=== PATIENT | male | born 1965 | race Caucasian/White ===

== ENCOUNTER 2016-10-16 09:32 | Outpatient (CLI) | payer OTHER ==
[2014-08-18 09:06] VITALS: BMI 47.2
--- NOTE | 2016-10-16 10:02 | DI ---
EXAM: Lumbar spine radiographs. HISTORY: Acute back pain. Sciatica. COMPARISON: None available. TECHNIQUE: 5 views of the lumbar spine. FINDINGS: The normal curvature and alignment are maintained. Vertebral body heights are normal. N o fracture or subluxation identified. There is mild loss of disc height at L5-S1. Mild multilevel endplate osteophyte formation and facet arthropathy noted. Sacral arcuate lines are intact. Soft t issues are unremarkable. Cholecystectomy clips noted. Staple line seen in the right lower quadrant , possibly due to prior appendectomy. IMPRESSION: Mild degenerative disc disease and facet arthropathy.
== END 2016-10-16 09:33 | disposition home or self-care (01) ==
LOC: RAD 09:32
PROVIDERS: ATTEND Family Medicine
DX: M54.5 Low back pain (principal)

== ENCOUNTER 2016-10-17 04:06 | Emergency (ER) | payer OTHER ==
[2016-10-17 04:20] VITALS: BP 127/81; TEMP 98.4; BMI 46.2
[2016-10-17] MEDS ORDERED: NORFLEX IM STA (04:34)
[2016-10-17] MEDS ORDERED: TORADOL IM STA (04:34)
[2016-10-17] MEDS ORDERED: DECADRON 4 MG/ML SDV IM STA (04:34)
--- NOTE | 2016-10-17 05:28 | CT ---
EXAM: CT lumbar spine without intravenous contrast 10/17/2016. Sagittal and coronal reformatted im ages obtained HISTORY: Hip pain COMPARISON: None. FINDINGS: A normal lumbar lordosis is maintained. Vertebral bodies appear intact without evidence of fracture. The facet joints align normally. Multilevel chronic degenerative disc disease. Posterior disc bulge/osteophyte complex most prominen t at L4-L5 and L5-S1. Mild bilateral L5-S1 neural foraminal stenosis. IMPRESSION: 1. There is no acute osseous abnormality of the lumbar spine. No fracture or subluxation. 2. Chronic degenerative disc disease. Posterior disc bulge/osteophyte complex most prominent at L4 -L5 and L5-S1.
--- NOTE | 2016-10-17 05:52 | ED.PDOC ---
General ED Provider: Dr. SHIVANI HERNANDEZ-ER Chief Complaint: Back Pain Stated Complaint: my back hurts and its gonig down my right leg Time Seen by Physician: 04:10 Mode of Arrival: Wheelchair Information Source: Patient, Family Exam Limitations: No limitations Primary Care Provider: SHIVANI HERNANDEZ Nursing and Triage Documentation Reviewed and Agree: Yes Musculoskeletal Complaint Exam - Back Pain Complaint/Exam Mechanism of Injury: Reports: No known trauma Symptoms Are: Still present Timing: Constant Episodes Lasting: Days Initial Severity: Mild Current Severity: Moderate Location: Reports: Discrete Character: Reports: Dull, Aching Aggravating: Reports: Movements, Lifting, Bending, Walking Alleviating: Reports: None Associated Signs and Symptoms: Denies: Swelling, Redness, Bruising, Fever, Weakness, Numbness, Tingling, Abdominal pain, Flank pain, Bladder incontinence, Bowel incontinence, Weight loss, Pain with weight bearing TAD Risk Factors: Reports: None AAA Risk Factors: Reports: None Cauda Equina Risk Factors: Reports: None Epidural Abcess Risk Factors: Reports: None Related Surgical History: Reports: None Focal Tenderness: Yes Paraspinal Muscle Tenderness: No Paraspinal Muscle Spasm: No Scoliosis: No Lordosis: No Kyphosis: No SLR Test: Right Negative, Left Negative Hip Motion Testing Pain: Right Negative, Left Negative Focal Weakness: Present: None Focal Sensory Loss: Present: None Gait: Present: Abnormal Differential Diagnoses: Compressive Cord Syndrome, Herniated Disk Review of Systems - Review Of Systems Constitutional: Reports: No symptoms Eyes: Reports: No symptoms Ears, Nose, Mouth, Throat: Reports: No symptoms Respiratory: Reports: No symptoms Cardiac: Reports: No symptoms GI: Reports: No symptoms : Reports: No symptoms Musculoskeletal: Reports: Back pain Skin: Reports: No symptoms Neurological: Reports: No symptoms Endocrine: Reports: No symptoms Hematologic/Lymphatic: Reports: No symptoms All Other Systems: Reviewed and Negative Past Medical History - Past Medical History Endocrine: Reports: DM 2 Cardiovascular: Reports: None Respiratory: Reports: None Hematological: Reports: None Gastrointestinal: Reports: None Genitourinary: Reports: None Neuro/Psych: Reports: None Musculoskeletal: Reports: None Cancer: Reports: None - Surgical History General Surgical History: Reports: Unknown - Family History Family History: Reports: Unknown - Social History Smoking Status: Never smoker Hx Substance Use: No Alcohol Screening: None - Immunizations Tetanus Shot up to Date: Yes Physical Exam - Physical Exam Appearance: Well-appearing, No pain distress, Well-nourished Pain Distress: Mild Eyes: MOUSTAPHA, EOMI, Conjunctiva clear ENT: Ears normal, Nose normal, Oropharynx normal Neck: Supple Respiratory: Airway patent, Breath sounds clear, Breath sounds equal, Respirations nonlabored Cardiovascular: RRR, Pulses normal, No rub, No murmur GI/: Soft Musculoskeletal: Normal strength, ROM intact, No edema, No calf tenderness Skin: Warm, Dry, Normal color Neurological: Sensation intact, Motor intact, Reflexes intact, Cranial nerves intact, Alert, Oriented Psychiatric: Affect appropriate Critical Care Note - Critical Care Note Total Time (mins): 0 Course - Course Orders, Labs, Meds: Orders Category Date Time Status Dexamethasone 4 mg/ml Inj [Decadron 4 mg/ml Sdv] MEDS 10/17/16 04:34 Discontinued 4 mg IM ONCE STA Ketorolac Tromethamine [Toradol] MEDS 10/17/16 04:34 Discontinued 60 mg IM ONCE STA Orphenadrine Citrate [Norflex] MEDS 10/17/16 04:34 Discontinued 60 mg IM ONCE STA CT LUMBAR SPINE W/O CONTRAST Stat RADS 10/17/16 04:32 Completed Medications Discontinued Medications Generic Name Dose Route Start Last Admin Trade Name Freq PRN Reason Stop Dose Admin Dexamethasone Sodium Phosphate 4 mg 10/17/16 04:34 10/17/16 05:05 Decadron 4 Mg/Ml Sdv IM 10/17/16 04:35 4 mg ONCE STA Administration Ketorolac Tromethamine 60 mg 10/17/16 04:34 10/17/16 05:06 Toradol IM 10/17/16 04:35 60 mg ONCE STA Administration Orphenadrine Citrate 60 mg 10/17/16 04:34 10/17/16 05:05 Norflex IM 10/17/16 04:35 60 mg ONCE STA Administration Vital Signs: Temp Pulse Resp BP Pulse Ox 10/17/16 04:07 98.4 F 83 20 127/81 96 Departure - Departure Time of Disposition: 05:52 Disposition: HOME SELF-CARE Discharge Problem: Pain in lower extremity due to sciatica Instructions: Sciatica (ED) Condition: Good Pt referred to PMD for follow-up: Yes Additional Instructions: norco 7.5mg q 6hrs prn pain #20--call my office this am to get set up for p.t. Allergies/Adverse Reactions: Allergies naproxen [From Naprosyn] Adverse Reaction (Verified 10/17/16 04:19) Hives/SWELLING Home Medications: Ambulatory Orders Lisinopril [Zestril] 10 mg PO DAILY 08/18/14 Metformin HCl 1,000 mg PO BID 08/18/14 Metformin HCl [Glucophage] 500 mg PO DAILY 08/18/14 Cetirizine HCl [Zyrtec] 10 mg PO 1 daily 05/22/16 Tadalafil [Cialis] 5 mg PO 1 daily 05/22/16 Pantoprazole Sodium [Protonix] 40 mg PO QDAC 10/17/16 Saxagliptin HCl [Onglyza] 5 mg PO DAILY 10/17/16 Disposition Discussed With: Patient, Family
== END 2016-10-17 06:00 | disposition home or self-care (01) ==
LOC: ED 04:06
DX: M54.41 Lumbago with sciatica, right side (principal)
CPT/HCPCS: 96372; 99283

== ENCOUNTER 2016-10-28 11:06 | Emergency (ER) | payer OTHER ==
[2016-10-28 11:07] VITALS: BMI 46.2
[2016-10-28 11:17] VITALS: BP 126/73; TEMP 101.2
[2016-10-28 13:18] LABS: BASOPHILS % (AUTO) 0.2 % (0.0-3.0); EOSINOPHILS # (AUTO) 0.1 K/ul (0.0-0.7); EOSINOPHILS % (AUTO) 1.1 % (0.0-7.0); HEMATOCRIT 37.7 % (42.0-52.0); HEMOGLOBIN 12.4 g/dl (14.0-18.0); IMMATURE GRANULOCYTE % (AUTO) 0.2 % (0.0-5.0); LYMPHOCYTES # (AUTO) 0.7 K/uL (0.60-3.4); LYMPHOCYTES % (AUTO) 5.9 (10.0-50.0); MEAN CORPUSCULAR HEMOGLOBIN 27.9 pg (27.0-31.0); MEAN CORPUSCULAR HGB CONC 32.9 (31.8-35.4); MEAN CORPUSCULAR VOLUME 84.7 fl (80.0-94.0); MONOCYTES # (AUTO) 0.8 K/uL (0.4-2.0); MONOCYTES % (AUTO) 6.7 (0-10); NEUTROPHILS # (AUTO) 10.7 K/ul (2.0-6.9); NEUTROPHILS % (AUTO) 85.9; PLATELET COUNT 233 10^3/uL (140-440); RED BLOOD COUNT 4.45 10^6/ul (4.70-6.10); WHITE BLOOD COUNT 12.49 K/ul (4.2-10.2)
[2016-10-28 13:41] LABS: ALBUMIN 3.8 g/dL (3.4-5.0); ALBUMIN/GLOBULIN RATIO 1.23; ANION GAP 15.3; BILIRUBIN,TOTAL 0.64 mg/dL (0.00-1.20); BUN/CREATININE RATIO 14.63; CALCIUM 9.4 mg/dL (8.2-10.2); CREATININE 1.23 mg/dL (0.60-1.10); POTASSIUM 4.3 mmol/L (3.5-5.1); TOTAL PROTEIN 6.9 g/dL (6.4-8.2)
--- NOTE | 2016-10-28 13:41 | DI ---
EXAM: Chest two views HISTORY: Cough COMPARISON: 01/31/2015 TECHNIQUE: Two views of the chest were performed FINDINGS: The lungs are clear. There is no pleural effusion or pneumothorax. The heart is normal in size. The mediastinal contour is normal. There are no acute abnormalities of the bones. IMPRESSION: No acute cardiopulmonary process.
[2016-10-28 13:46] LABS: FLU INTERNAL QC INTERNAL QC VALID; RAPID FLU A NEGATIVE (NEGATIVE); RAPID FLU B NEGATIVE (NEGATIVE)
--- NOTE | 2016-10-28 14:29 | ED.PDOC ---
General ED Provider: Dr. RUFINO HANNAH Chief Complaint: Diabetes Stated Complaint: weakness Time Seen by Physician: 11:11 (denied abdominal , or urinary symp) Mode of Arrival: Walk-In Information Source: Patient Exam Limitations: No limitations Primary Care Provider: SHIVANI HERNANDEZ Nursing and Triage Documentation Reviewed and Agree: Yes (some rectal pain upon bowel movement last colonscopy 3 months ago ) Neurological Complaint Exam - Weakness Complaint/Exam Last Known Well: this morning felt weak at work on arrival was noted he has fever 101 Onset: Gradual Duration: 5 hrs Symptoms Are: Still present Episodes Lasting: Hours Initial Severity: Mild Current Severity: Mild Character: Reports: Weak. Denies: Room spinning, Lightheaded, Dizzy Aggravating: Reports: None Alleviating: Reports: None Associated Signs and Symptoms: Denies: Nausea, Vomiting, Diaphoresis, Tinnitus, Chest pain, Short of air, Palpitations, Unsteady gait, GI blood loss, Visual changes, Decreased oral intake, Change in medication, Change in diet, OTC meds, Loss of balance Cardiac Risk Factors: Reports: Diabetes CVA Risk Factors: Reports: Diabetes Related Surgical History: Reports: None JVD Present: No Carotid Bruit Present: No Rectal Heme Positive: No Glascow Coma Scale (see protocol): 15 Nystagmus Present: No Gag Reflex Present: No Meningeal Signs Positive: No Focal Weakness: Present: None Focal Sensory Loss: Present: None Gait: Normal Differential Diagnoses: Hypovolemia, Metabolic abnormalities Quality Indicators for Cardiac Chest Pain: EKG in 10min. Quality Indicators for AMI: EKG in 10min. Review of Systems - Review Of Systems Constitutional: Reports: Fever, Malaise, Weakness Eyes: Reports: No symptoms Ears, Nose, Mouth, Throat: Reports: No symptoms Respiratory: Reports: Cough Cardiac: Reports: No symptoms GI: Reports: No symptoms : Reports: No symptoms Musculoskeletal: Reports: No symptoms Skin: Reports: No symptoms Neurological: Reports: No symptoms Endocrine: Reports: No symptoms Hematologic/Lymphatic: Reports: No symptoms All Other Systems: Reviewed and Negative Past Medical History - Past Medical History Endocrine: Reports: DM 2 Cardiovascular: Reports: None Respiratory: Reports: None Hematological: Reports: None Gastrointestinal: Reports: Other (colonic polyps lower GI bleed ALTHOUGH NOT TODAY OR LAST WEEK) Genitourinary: Reports: None Neuro/Psych: Reports: None Musculoskeletal: Reports: None Cancer: Reports: None - Surgical History General Surgical History: Reports: Unknown - Family History Family History: Reports: Unknown - Social History Smoking Status: Never smoker Hx Substance Use: No Alcohol Screening: None - Immunizations Tetanus Shot up to Date: Yes Physical Exam - Physical Exam Appearance: Well-appearing, No pain distress, Well-nourished Eyes: MOUSTAPHA, EOMI, Conjunctiva clear ENT: Ears normal, Nose normal, Oropharynx normal Respiratory: Airway patent, Breath sounds clear, Breath sounds equal, Respirations nonlabored Cardiovascular: RRR, Pulses normal, No rub, No murmur GI/: Soft, Nontender, No masses, Bowel sounds normal, No Organomegaly Musculoskeletal: Normal strength, ROM intact, No edema, No calf tenderness Skin: Warm, Dry, Normal color Neurological: Sensation intact, Motor intact, Reflexes intact, Cranial nerves intact, Alert, Oriented Psychiatric: Affect appropriate, Mood appropriate Interpretation - Radiology Interpretation Radiology Interpretation By: Radiologist Radiology Results: Negative Exam Interpreted: CXR Critical Care Note - Critical Care Note Total Time (mins): 0 Course - Course Hematology/Chemistry: 10/28/16 13:06 10/28/16 13:15 Orders, Labs, Meds: Lab Review 10/28/16 10/28/16 13:06 13:15 WBC 12.49 H RBC 4.45 L Hgb 12.4 L Hct 37.7 L MCV 84.7 MCH 27.9 MCHC 32.9 RDW Coeff of Kay 13.9 Plt Count 233 Immature Gran % (Auto) 0.2 Neut % (Auto) 85.9 Lymph % (Auto) 5.9 L [place] % (Auto) 6.7 Eos % (Auto) 1.1 Baso % (Auto) 0.2 Immature Gran # (Auto) 0.0 Neut # 10.7 H Lymph # 0.7 [place] # 0.8 Eos # 0.1 Baso # 0.0 Sodium 137 Potassium 4.3 Chloride 103 Carbon Dioxide 23 Anion Gap 15.3 BUN 18 Creatinine 1.23 H Estimated GFR (MDRD) 62.00 BUN/Creatinine Ratio 14.63 Glucose 229 H Lactic Acid 16.5 Calcium 9.4 Total Bilirubin 0.64 AST 29 ALT 51 Alkaline Phosphatase 58 Total Protein 6.9 Albumin 3.8 Globulin 3.1 Albumin/Globulin Ratio 1.23 Influenza A (Rapid) Negative Influenza B (Rapid) Negative Orders Category Date Time Status EKG-(ED ONLY) Stat CARDIO 10/28/16 14:22 Ordered BLOOD CULTURE Stat LAB 10/28/16 13:15 Received CBC W/ AUTO DIFF Stat LAB 10/28/16 13:06 Completed COMPREHENSIVE METABOLIC PANEL Stat LAB 10/28/16 13:15 Completed FERRITIN Routine LAB 10/28/16 Ordered IRON AND TIBC Routine LAB 10/28/16 Ordered LACTIC ACID Stat LAB 10/28/16 13:15 Completed MOLECULAR GROUP A STREP Stat LAB 10/28/16 13:15 Results RAPID FLU A/B Stat LAB 10/28/16 13:15 Completed STREP SCREEN Stat LAB 10/28/16 13:15 Results CHEST, 2 VIEWS PA & LAT Stat RADS 10/28/16 13:06 Completed Vital Signs: Temp Pulse Resp BP Pulse Ox 10/28/16 11:07 101.2 F H 112 H 20 126/73 94 L Departure - Departure Time of Disposition: 14:37 Disposition: HOME SELF-CARE Discharge Problem: Weakness Anemia Qualifiers: Anemia type: unspecified type Qualifier Code: (D64.9) Anemia, unspecified Instructions: Anemia (ED) Condition: Good Pt referred to PMD for follow-up: No Additional Instructions: Please call your Family Physician as soon as possible to schedule a follow-up appointment. Prescriptions: Hydrocodone/Acetaminophen [[place] 5-325 Tablet] 1 each PO Q6HR PRN #20 tablet PRN Reason: PAIN Allergies/Adverse Reactions: Allergies naproxen [From Naprosyn] Adverse Reaction (Verified 10/17/16 04:19) Hives/SWELLING Home Medications: Ambulatory Orders Lisinopril [Zestril] 10 mg PO DAILY 08/18/14 Metformin HCl 1,000 mg PO BID 08/18/14 Metformin HCl [Glucophage] 500 mg PO DAILY 08/18/14 Cetirizine HCl [Zyrtec] 10 mg PO 1 daily 05/22/16 Tadalafil [Cialis] 5 mg PO 1 daily 05/22/16 Pantoprazole Sodium [Protonix] 40 mg PO QDAC 10/17/16 Saxagliptin HCl [Onglyza] 5 mg PO DAILY 10/17/16 Hydrocodone/Acetaminophen [[place] 5-325 Tablet] 1 each PO Q6HR PRN #20 tablet
[2016-10-28 15:05] LABS: FERRITIN 71.07 ng/mL (21.81-274.66)
== END 2016-10-28 15:21 | disposition home or self-care (01) ==
LOC: ED 11:06
DX: R53.1 Weakness (principal); D64.9 Anemia, unspecified; E11.9 Type 2 diabetes mellitus without complications; R50.9 Fever, unspecified; R05 Cough; Z79.899 Other long term (current) drug therapy
CPT/HCPCS: 36415; 80053; 82728; 83540; 83550; 83605; 85025; 87040; 87651; 87804; 87880; 93005; 93010; 99283

== ENCOUNTER 2016-11-04 08:00 | Outpatient (RCR) ==
--- NOTE | 2016-10-21 11:21 | RS.OPPTEV2 ---
Date of Note: 10/21/16 Visit #: 1 Date of Evaluation: 10/21/16 Payer Source: Insurance Treatment Diagnosis: Low Back pain, Sciatica associated with disorder of lumbar spine History of Condition/Mechanism of Injury:: Patient reports onset of pain approximately 3-4 weeks ago. Reports no injury that he is aware of. Reports no history of back problems. Prior Level of Function.....Patient was independent with: ADL's, Self Care, Work /Vocation, Caregiving, Ambulation/Mobility, Community Integration/Access Functional Limitations: Reaching, Pushing, Pulling, Lifting, Carrying, Sitting, Standing, Bending, Ambulation, Community Access/Integration Current Subjective/complaints:: Patient reports back pain and some radiating symptoms. States he always has an aching discomfort in the low back. States last week he got up and could barely walk due to pain and symptoms in his legs. He went to the ER and received injections, which have helped. He is currently taking an anti-inflammatory. He has pain medication. States walking still bothers him. Reports his legs feel weak and like he has a lack of control. Reports aching in the low back with prolonged sitting. He is continuining to work. 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 States if something breaks down, he has to use heavy equipment or tools. 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 Medical History Medical History: Hypertension, Diabetes Surgical History: Cholecystectomy Surgical History Comments:: Appendectomy Diagnostic Testing/Imaging:: CT Lumbar spine w/o contrast 10/17/16: "There is no acute osseous abnormality of the lumbar spine. No fracture or subluxation. Chronic degenerative disc disease. Posterior disc bulge/osteophyte complex most prominent at L4-5, L5-S1." Hx Home Medications: anti-inflammatory, pain medication Patient's Goals: His goal is to get relief of back pain. Pain Assessment - Pain Description Pain Location: low back and leg pain Pain Description: Aching Current Pain Intensity: 2/10 Worst Pain Intensity: 9/10 Functional Outcome Measure Oswestry LBP: 40 - G Codes & Severity Modifier G Codes & Modifier: NA Source of G Code score: NA Observation - Observation Posture: Scapula Asymmetry (right shoulder elevated (patient is left handed)) Handedness: Left Gait - Gait Pattern General Gait Pattern Observation: No Deviations/Normal - ROM Lumbar Flexion: Hand reach to patellae (lumbar spine with minimal mobility due to muscle tone) Sidebending to Left: Reach to Mid-thigh Sidebending to Right: Reach to Mid-thigh Lumbar Spine ROM Limitations: Soft Tissue Tightness, Pain Comments: Lumbar extension WFL's with reports of increased discomfort at low back. Bilateral LE AROM is WFL's. - Strength Comments: Trunk strength and LE strength 5/5 throughout. - Special Tests JIE Test: Negative Left, Negative Right SLR Test: Negative Left, Negative Right Pio's Sign Test: Negative Left, Negative Right Seated Dural Stretch Test: Negative Left, Negative Right SI Joint Compression: Negative Palpation Comments:: Patient reports no tenderness with palpation throughout the lumbar spine, SI joints, or superior gluteal region bilaterally. Demonstrates moderate muscle guarding along the lumbar paraspinals. Sensation - Sensation Right Lower Extremity: Intact/Normal Left Lower Extremity: Intact/Normal Additional Comments: Additional Comments: In supine left LE appears shorter than the left by ~1/4 inch. SLR in supine: right 40 degrees, left 50 degrees. - Treatment Modality: Ultrasound Parameters/Method Applied: X 12 mins @ 1.6 w/cm2 continuous to bilateral lumbosacral region Patient Position: Left Sidelying Interventions - Exercise/Activities/Manual Therapy Exercises/Activities: Patient instructed in SKTC and HS stretch Manual Therapy: NA HOME EXERCISE PROGRAM: SKTC and HS stretch - Charges Total Direct Minutes: 48 mins Total Treatment Time: 48 mins Procedures billed for this date of service:: EVAL medium complexity, US Assessment Assessment: Patient presents to therapy with diagnosis of low back pain, sciatica from lumbar spine. He demonstrates decreased lumbar mobility due to muscle guarding. Demonstrates lumbar ROM limited by pain/muscle guarding. Exhibits imbalance and tightness of hamstrings. Reports difficulty with activities such as walking, lifting, and prolonged sitting due to discomfort. He demonstrates good potential to benefit from modalities and exercises to improve his mobility and decrease his pain. Patient Education: Education of diagnosis, Body/Joint mechanics, Home Exercise Program, Home Safety, Activity Modification, Education of Plan of Care Rehab Potential: Good Short Term Goals Goal #1: Pt independent and compliant with basic HEP. Goal to be met by: 11/04/16 Goal #2: Muscle tone along lumbar spine decreased to minimal. Goal to be met by: 11/04/16 Goal #3: Low back pain at worst <5/10. Goal to be met by: 11/04/16 Gamer Goals Goal #1: Pt knows to continue HEP to maintain level of function at discharge. Goal to be met by: 11/30/16 Goal #2: Score on Oswestry LBP scale improved to 12. Goal to be met by: 11/30/16 Goal #3: Pt able to perform all home and work activities without back or LE pain. Goal to be met by: 11/30/16 Goal #4: Pt to demonstrates good comprehension of back safety and body mechanics. Goal to be met by: 11/30/16 Plan - Treatment to be Provided Procedures: Therapeutic Exercises, Therapeutic Activity, Manual Therapy, Patient Education Modalities: Electrical Stimulation, Ultrasound/Phonophoresis, Class IV Laser, Cryotherapy, Hot Packs - Treatment Plan Frequency: 2-3 X week Duration: 4 weeks ORDER # VISITS AND/OR THROUGH DATE: 11/30/16 - Treatment Code (1) Low back pain Qualifiers: Chronicity: acute Back pain laterality: unspecified Sciatica presence: unspecified whether sciatica present Qualified Description: Acute low back pain, unspecified back pain laterality, with sciatica presence unspecified Qualifier Code(s): (M54.5) Low back pain
--- NOTE | 2016-10-23 16:29 | RS.OPPTDN ---
Subjective Date of Note: 10/23/16 Visit #: 2 Date of Evaluation: 10/21/16 Payer Source: Insurance Treatment Diagnosis: Low Back pain, Sciatica associated with disorder of lumbar spine Current Subjective/complaints:: Patient reports first treatment helped reduce pain. Patient reports he has more pain at the left S-I today, was greater on the right. Reports no pain immediately following treatment and exercise. Pain Assessment - Pain Description Pain Location: low back and leg pain Pain Description: Aching Current Pain Intensity: 2-3/10, no pain following treatment - Treatment Modality: Ultrasound Parameters/Method Applied: [id number] at 1.5w/cm2 to the bilateral lower lumbar paraspinals and the S-I joints with focus on the left. Patient in right side- lying. Patient Position: Right Sidelying - Heat/Cryotherapy Treatment: Hot Pack ([id number] to the lumbar paraspinals prior to US and EX. Patient in supine. ) Interventions - Exercise/Activities/Manual Therapy Exercises/Activities: [id number] Assisted assisted with HS, SKTC, piriformis, and trunk rotation. Reviewed HEP and given copy of piriformis stretch. Total minutes of Exercise: 15mins Manual Therapy: NA HOME EXERCISE PROGRAM: SKTC and HS stretch, piriformis stretch - Charges Total Direct Minutes: 29mins Total Treatment Time: 49mins Procedures billed for this date of service:: HP, US, EX Assessment: Patient responding to treatment. Seems motivated to porgress. Patient Education: Body/Joint mechanics, Home Exercise Program, Activity Modification Comments: Patient education of dx, mechanics, safety, and HEP. Patient demonstrates compliance with HEP?: Yes Short Term Goals Goal #1: Pt independent and compliant with basic HEP. Goal to be met by: 11/04/16 Progress towards Goal:: Progressing Goal #2: Muscle tone along lumbar spine decreased to minimal. Goal to be met by: 11/04/16 Goal #3: Low back pain at worst <5/10. Goal to be met by: 11/04/16 Progress towards Goal:: Progressing Group Home Goals Goal #1: Pt knows to continue HEP to maintain level of function at discharge. Goal to be met by: 11/30/16 Goal #2: Score on Oswestry LBP scale improved to 12. Goal to be met by: 11/30/16 Goal #3: Pt able to perform all home and work activities without back or LE pain. Goal to be met by: 11/30/16 Goal #4: Pt to demonstrates good comprehension of back safety and body mechanics. Goal to be met by: 11/30/16 Plan PLAN OF CARE EXPIRES ON:: 11/30/16 ORDER # VISITS AND/OR THROUGH DATE: 11/30/16 PLAN: Continue Plan of Care
--- NOTE | 2016-10-25 14:08 | RS.OPPTDN ---
Subjective Date of Note: 10/25/16 Visit #: 3 Date of Evaluation: 10/21/16 Payer Source: Insurance Treatment Diagnosis: Low Back pain, Sciatica associated with disorder of lumbar spine Current Subjective/complaints:: Patient reports pain is better since starting treatemnt and is working on HEP. Pain Assessment - Pain Description Pain Location: low back and leg pain Pain Description: Aching Current Pain Intensity: 2-3/10, min to no pain following treatment - Treatment Modality: US with ES (Comb.) Parameters/Method Applied: [id number] at 1.5w/cm2 and Estim to 135p.v. to the bilateral S-I joints with focus on left. Patient Position: Right Sidelying - Heat/Cryotherapy Treatment: Hot Pack ([id number] to lowback prior to USCOM. Patient in supine) Interventions - Exercise/Activities/Manual Therapy Exercises/Activities: [id number] Assisted assisted with HS, SKTC, piriformis, and trunk rotation. Isometric hip adduction, isomentric hip flexion, Bridging, Total minutes of Exercise: 15mins Manual Therapy: NA HOME EXERCISE PROGRAM: SKTC and HS stretch, piriformis stretch, isometric hip add, isometric hip flexion, bridging - Charges Total Direct Minutes: 27mins Total Treatment Time: 47mins Procedures billed for this date of service:: HP, USCOM, EX Assessment: Patient responding to treatment and able to advance with exercise. Patient Education: Body/Joint mechanics, Home Exercise Program, Activity Modification Patient demonstrates compliance with HEP?: Yes Short Term Goals Goal #1: Pt independent and compliant with basic HEP. Goal to be met by: 11/04/16 Progress towards Goal:: Met Goal #2: Muscle tone along lumbar spine decreased to minimal. Goal to be met by: 11/04/16 Goal #3: Low back pain at worst <5/10. Goal to be met by: 11/04/16 Progress towards Goal:: Met Residential Goals Goal #1: Pt knows to continue HEP to maintain level of function at discharge. Goal to be met by: 11/30/16 Goal #2: Score on Oswestry LBP scale improved to 12. Goal to be met by: 11/30/16 Goal #3: Pt able to perform all home and work activities without back or LE pain. Goal to be met by: 11/30/16 Goal #4: Pt to demonstrates good comprehension of back safety and body mechanics. Goal to be met by: 11/30/16 Plan PLAN OF CARE EXPIRES ON:: 11/30/16 ORDER # VISITS AND/OR THROUGH DATE: 11/30/16 PLAN: Continue Plan of Care
--- NOTE | 2016-11-01 16:42 | RS.OPPTDN ---
Subjective Date of Note: 11/01/16 Visit #: 4 Date of Evaluation: 10/21/16 Payer Source: Insurance Treatment Diagnosis: Low Back pain, Sciatica associated with disorder of lumbar spine Current Subjective/complaints:: Reports he feels better this week,no pain at this time. Pain Assessment - Pain Description Pain Location: low back and leg pain Pain Description: Aching Current Pain Intensity: 0 at rest - Heat/Cryotherapy Treatment: Hot Pack (20 mins. to lumbar in supine) Interventions - Exercise/Activities/Manual Therapy Exercises/Activities: [id number] Assisted assisted with HS, SKTC, piriformis, and trunk rotation. Isometric hip adduction, isomentric hip flexion, Bridging, Total minutes of Exercise: 15 Manual Therapy: Deep tisue mobs . to lumbar paraspinals,emphasis on R side. Total minutes of Manual Therapy: 15 HOME EXERCISE PROGRAM: SKTC and HS stretch, piriformis stretch, isometric hip add, isometric hip flexion, bridging - Charges Total Direct Minutes: 30 Total Treatment Time: 50 Procedures billed for this date of service:: hp,ex,manual Assessment: Patient progressing,has no pain today during session.He has good hamstring extensibility bilaterally.He is noted to be tighter in the R lumbar with trunk rotation to the L today.He is attentive to recommendations for his POC. Patient Education: Body/Joint mechanics, Home Exercise Program, Home Safety, Activity Modification, Education of Plan of Care Patient demonstrates compliance with HEP?: Yes Short Term Goals Goal #1: Pt independent and compliant with basic HEP. Goal to be met by: 11/04/16 Progress towards Goal:: Met Goal #2: Muscle tone along lumbar spine decreased to minimal. Goal to be met by: 11/04/16 Progress towards Goal:: Progressing Goal #3: Low back pain at worst <5/10. Goal to be met by: 11/04/16 Progress towards Goal:: Met Shelter Goals Goal #1: Pt knows to continue HEP to maintain level of function at discharge. Goal to be met by: 11/30/16 Progress towards goal: Progressing Goal #2: Score on Oswestry LBP scale improved to 12. Goal to be met by: 11/30/16 Goal #3: Pt able to perform all home and work activities without back or LE pain. Goal to be met by: 11/30/16 Progress towards goal: Progressing Goal #4: Pt to demonstrates good comprehension of back safety and body mechanics. Goal to be met by: 11/30/16 Plan PLAN OF CARE EXPIRES ON:: 11/30/16 ORDER # VISITS AND/OR THROUGH DATE: 11/30/16 PLAN: Continue Plan of Care
--- NOTE | 2016-11-04 08:59 | RS.OPPTDN ---
Subjective Date of Note: 11/04/16 Visit #: 5 Date of Evaluation: 10/21/16 Payer Source: Insurance Treatment Diagnosis: Low Back pain, Sciatica associated with disorder of lumbar spine Current Subjective/complaints:: Patient reports tenderness after last session of dep tissue mobs.,but overall feels better.No pain this morning. Pain Assessment - Pain Description Pain Location: low back and leg pain,(but not present today) Pain Description: Aching Current Pain Intensity: 0 at rest - Heat/Cryotherapy Treatment: Hot Pack (20 mins. to lumbar ,prior to exercises) Interventions - Exercise/Activities/Manual Therapy Exercises/Activities: 20 mins. SKTC,DKTC,90/90 hams. stretches,piriformis stretches,lower trunk rotation. Total minutes of Exercise: 20 Manual Therapy: N/A Total minutes of Manual Therapy: 0 HOME EXERCISE PROGRAM: SKTC and HS stretch, piriformis stretch, isometric hip add, isometric hip flexion, bridging - Charges Total Direct Minutes: 20 Total Treatment Time: 40 Procedures billed for this date of service:: hp,ex 1 Assessment: Patient pain-free this morning,no re-occuring pain during exercises.He has good hamstring extensibility bilaterally.He is motivated to improve,compliant to HEP. Patient Education: Home Exercise Program, Education of Plan of Care Patient demonstrates compliance with HEP?: Yes Short Term Goals Goal #1: Pt independent and compliant with basic HEP. Goal to be met by: 11/04/16 Progress towards Goal:: Met Goal #2: Muscle tone along lumbar spine decreased to minimal. Goal to be met by: 11/04/16 Progress towards Goal:: Progressing Goal #3: Low back pain at worst <5/10. Goal to be met by: 11/04/16 Progress towards Goal:: Met Shelter Goals Goal #1: Pt knows to continue HEP to maintain level of function at discharge. Goal to be met by: 11/30/16 Progress towards goal: Progressing Goal #2: Score on Oswestry LBP scale improved to 12. Goal to be met by: 11/30/16 Goal #3: Pt able to perform all home and work activities without back or LE pain. Goal to be met by: 11/30/16 Progress towards goal: Progressing Goal #4: Pt to demonstrates good comprehension of back safety and body mechanics. Goal to be met by: 11/30/16 Progress towards goal: Progressing Plan PLAN OF CARE EXPIRES ON:: 11/30/16 ORDER # VISITS AND/OR THROUGH DATE: 11/30/16 PLAN: Continue Plan of Care
== END 2016-11-05 ==
PROVIDERS: ATTEND Family Medicine
DX: M53.9 Dorsopathy, unspecified (principal); M54.5 Low back pain

== ENCOUNTER 2016-11-21 13:00 | Outpatient (RCR) ==
--- NOTE | 2016-11-06 09:12 | RS.OPPTDN ---
Subjective Date of Note: 11/06/16 Visit #: 6 Date of Evaluation: 10/21/16 Payer Source: Insurance Treatment Diagnosis: Low Back pain, Sciatica associated with disorder of lumbar spine Current Subjective/complaints:: Reports the low back feels better,has some discomfort in the mid-back. Pain Assessment - Pain Description Pain Location: low back and leg pain,(but not present today) Current Pain Intensity: 0 at rest - Heat/Cryotherapy Treatment: Hot Pack (20 ins. prior to exercises) Interventions - Exercise/Activities/Manual Therapy Exercises/Activities: 20 mins. green theraband exercises of postural pullbacks at three different heights.Recommended 3/10-15 reps,2-3x/day in PAIN FREE ROM. Total minutes of Exercise: 20 Manual Therapy: N/A Total minutes of Manual Therapy: 0 HOME EXERCISE PROGRAM: SKTC and HS stretch, piriformis stretch, isometric hip add, isometric hip flexion, bridging - Charges Total Direct Minutes: 20 Total Treatment Time: 40 Procedures billed for this date of service:: hp,ex Assessment: Patient has good return demo of theraband exercises,good speed of eccentric motion.He reports fatigue only in trunk extensors,no pain present.He is motivated to improve. Patient Education: Body/Joint mechanics, Home Exercise Program Patient demonstrates compliance with HEP?: Yes Short Term Goals Goal #1: Pt independent and compliant with basic HEP. Goal to be met by: 11/04/16 Progress towards Goal:: Met Goal #2: Muscle tone along lumbar spine decreased to minimal. Goal to be met by: 11/04/16 Progress towards Goal:: Progressing Goal #3: Low back pain at worst <5/10. Goal to be met by: 11/04/16 Progress towards Goal:: Met [facility] Goals Goal #1: Pt knows to continue HEP to maintain level of function at discharge. Goal to be met by: 11/30/16 Progress towards goal: Progressing Goal #2: Score on Oswestry LBP scale improved to 12. Goal to be met by: 11/30/16 Goal #3: Pt able to perform all home and work activities without back or LE pain. Goal to be met by: 11/30/16 Progress towards goal: Progressing Goal #4: Pt to demonstrates good comprehension of back safety and body mechanics. Goal to be met by: 11/30/16 Progress towards goal: Partially Met Plan PLAN OF CARE EXPIRES ON:: 11/30/16 ORDER # VISITS AND/OR THROUGH DATE: 11/30/16 PLAN: Continue Plan of Care
--- NOTE | 2016-11-11 14:06 | RS.OPPTDN ---
Subjective Date of Note: 11/11/16 Visit #: 7 Date of Evaluation: 10/21/16 Payer Source: Insurance Treatment Diagnosis: Low Back pain, Sciatica associated with disorder of lumbar spine Current Subjective/complaints:: Patient reports his pain has lessened significantly the past 3-4 days,no pain at present time. Pain Assessment - Pain Description Pain Location: low back and leg pain,(but not present today) Current Pain Intensity: 0 at rest - Heat/Cryotherapy Treatment: Hot Pack (20 mins. prior to exercises) Interventions - Exercise/Activities/Manual Therapy Exercises/Activities: 25 mins. postural pullbacks at three different heights on the multi-gym with 20# resistance,then instructed in standing exercises using large therapy ball against the wall,doing alternating UE/LE. Total minutes of Exercise: 25 Manual Therapy: N/A Total minutes of Manual Therapy: 0 HOME EXERCISE PROGRAM: SKTC and HS stretch, piriformis stretch, isometric hip add, isometric hip flexion, bridging - Charges Total Direct Minutes: 25 Total Treatment Time: 45 Procedures billed for this date of service:: hp,ex 2 Assessment: Progressing well,no report of back pain with progressive resistance exercises today.He reports overall less frequent and less intense pain with strenuous activities.He is attentive to recommendations of the therapy staff. Patient Education: Body/Joint mechanics, Home Exercise Program, Education of Plan of Care Patient demonstrates compliance with HEP?: Yes Short Term Goals Goal #1: Pt independent and compliant with basic HEP. Goal to be met by: 11/04/16 Progress towards Goal:: Met Goal #2: Muscle tone along lumbar spine decreased to minimal. Goal to be met by: 11/04/16 Progress towards Goal:: Partially Met Goal #3: Low back pain at worst <5/10. Goal to be met by: 11/04/16 Progress towards Goal:: Met Nursing Home Goals Goal #1: Pt knows to continue HEP to maintain level of function at discharge. Goal to be met by: 11/30/16 Progress towards goal: Progressing Goal #2: Score on Oswestry LBP scale improved to 12. Goal to be met by: 11/30/16 Goal #3: Pt able to perform all home and work activities without back or LE pain. Goal to be met by: 11/30/16 Progress towards goal: Progressing Goal #4: Pt to demonstrates good comprehension of back safety and body mechanics. Goal to be met by: 11/30/16 Progress towards goal: Met Plan PLAN OF CARE EXPIRES ON:: 11/30/16 ORDER # VISITS AND/OR THROUGH DATE: 11/30/16 PLAN: Progress Exercises
--- NOTE | 2016-11-13 09:04 | RS.OPPTDN ---
Subjective Date of Note: 11/13/16 Visit #: 8 Date of Evaluation: 10/21/16 Payer Source: Insurance Treatment Diagnosis: Low Back pain, Sciatica associated with disorder of lumbar spine Current Subjective/complaints:: Patient reports muscle soreness from last session ,but no pain present. Pain Assessment - Pain Description Pain Location: low back Current Pain Intensity: 0 at rest Other Comments regarding Pain:: muscle soreness only - Heat/Cryotherapy Treatment: Hot Pack (20 mins. to low back in supine,prior to exercises) Interventions - Exercise/Activities/Manual Therapy Exercises/Activities: 30 mins. postural pullbacks at three different heights on the [facility]-gym with 20# resistance,resisted trunk rotation to L and R with 10 # on [facility].Ended session with boxers punch motion with 10 #,All exercises today. Total minutes of Exercise: 30 Manual Therapy: N/A Total minutes of Manual Therapy: 0 HOME EXERCISE PROGRAM: SKTC and HS stretch, piriformis stretch, isometric hip add, isometric hip flexion, bridging. - Charges Total Direct Minutes: 30 Total Treatment Time: 50 Procedures billed for this date of service:: hp,ex 2 Assessment: Patient reports fatigue only today as we progress the resistance for his exercises,as the R side fatigue occurs more quickly than the L with trunk rotation.He is motivated to improve. Patient Education: Body/Joint mechanics, Home Exercise Program, Education of Plan of Care Patient demonstrates compliance with HEP?: Yes Short Term Goals Goal #1: Pt independent and compliant with basic HEP. Goal to be met by: 11/04/16 Progress towards Goal:: Met Goal #2: Muscle tone along lumbar spine decreased to minimal. Goal to be met by: 11/04/16 Progress towards Goal:: Partially Met Goal #3: Low back pain at worst <5/10. Goal to be met by: 11/04/16 Progress towards Goal:: Met Half-Way Goals Goal #1: Pt knows to continue HEP to maintain level of function at discharge. Goal to be met by: 11/30/16 Progress towards goal: Partially Met Goal #2: Score on Oswestry LBP scale improved to 12. Goal to be met by: 11/30/16 Goal #3: Pt able to perform all home and work activities without back or LE pain. Goal to be met by: 11/30/16 Progress towards goal: Progressing Goal #4: Pt to demonstrates good comprehension of back safety and body mechanics. Goal to be met by: 11/30/16 Progress towards goal: Met Plan PLAN OF CARE EXPIRES ON:: 11/30/16 ORDER # VISITS AND/OR THROUGH DATE: 11/30/16 PLAN: Progress Exercises
--- NOTE | 2016-11-14 09:14 | RS.OPPTDN ---
Subjective Date of Note: 11/14/16 Visit #: 9 Date of Evaluation: 10/21/16 Payer Source: Insurance Treatment Diagnosis: Low Back pain, Sciatica associated with disorder of lumbar spine Current Subjective/complaints:: Reports back feels better,has muscle soreness in shoulders from postural exercises. Pain Assessment - Pain Description Pain Location: low back Current Pain Intensity: 0 at rest - Heat/Cryotherapy Treatment: Hot Pack (20 mins. prior to exercises) Interventions - Exercise/Activities/Manual Therapy Exercises/Activities: 20 mins. supine stretches of SKTC,DKTC,hamstring stretches ,LTR.Ended session with standing,dorway stretches for pecs. stretch. Total minutes of Exercise: 20 Manual Therapy: N/A Total minutes of Manual Therapy: 0 HOME EXERCISE PROGRAM: SKTC and HS stretch, piriformis stretch, isometric hip add, isometric hip flexion, bridging. - Charges Total Direct Minutes: 20 Total Treatment Time: 40 Procedures billed for this date of service:: hp ex 1 Assessment: Patient pleased with progress ,no back pain today with exercises.When he does have pain ,it is minimal and less frequent.He has good understanding of HEP,and is motivated to improve. Patient Education: Education of diagnosis, Body/Joint mechanics, Home Exercise Program, Home Safety, Activity Modification, Education of Plan of Care Patient demonstrates compliance with HEP?: Yes Short Term Goals Goal #1: Pt independent and compliant with basic HEP. Goal to be met by: 11/04/16 Progress towards Goal:: Met Goal #2: Muscle tone along lumbar spine decreased to minimal. Goal to be met by: 11/04/16 Progress towards Goal:: Partially Met Goal #3: Low back pain at worst <5/10. Goal to be met by: 11/04/16 Progress towards Goal:: Met [employer] Goals Goal #1: Pt knows to continue HEP to maintain level of function at discharge. Goal to be met by: 11/30/16 Progress towards goal: Partially Met Goal #2: Score on Oswestry LBP scale improved to 12. Goal to be met by: 11/30/16 Progress towards goal: Progressing Goal #3: Pt able to perform all home and work activities without back or LE pain. Goal to be met by: 11/30/16 Progress towards goal: Progressing Goal #4: Pt to demonstrates good comprehension of back safety and body mechanics. Goal to be met by: 11/30/16 Progress towards goal: Met Plan PLAN OF CARE EXPIRES ON:: 11/30/16 ORDER # VISITS AND/OR THROUGH DATE: 11/30/16 PLAN: Continue Plan of Care
--- NOTE | 2016-11-21 14:13 | RS.OPPTDC ---
Date of Discharge: 11/21/16 Date of Evaluation: 10/21/16 Number of Visits: 10 Treatment Diagnosis: Low Back pain, Sciatica associated with disorder of lumbar spine Current Level of Function: Independent with ADLs,ocasional muscle soreness ,but no pain. Pain Assessment - Pain Description Pain Location: low back Current Pain Intensity: 0 at rest Functional Outcome Measure - G Codes & Severity Modifier G Codes & Modifier: NA Source of G Code score: NA Observation - Observation Posture: Normal - Heat/Cryotherapy Treatment: Hot Pack (20 mins. prior to exercises) Interventions - Exercise/Activities/Manual Therapy Exercises/Activities: 30 mins. black theraband exercises ,3/15 each of postural pullbacks at 3 different levels,then trunk rotation to L and R.HEP review and low back protection. Total minutes of Exercise: 30 Manual Therapy: N/A Total minutes of Manual Therapy: 0 HOME EXERCISE PROGRAM: SKTC and HS stretch, piriformis stretch, isometric hip add, isometric hip flexion, bridging. - Charges Total Direct Minutes: 30 Total Treatment Time: 50 Procedures billed for this date of service:: hp,ex 2 Assessment Assessment: Patient reports no pain during the entire PT session today.He has good understanding of HEP,is aware of D/C plan. Patient Education: Body/Joint mechanics, Home Exercise Program, Home Safety, Activity Modification, Education of Plan of Care Rehab Potential: Good Short Term Goals Goal #1: Pt independent and compliant with basic HEP. Goal to be met by: 11/04/16 Progress towards Goal:: Met Goal #2: Muscle tone along lumbar spine decreased to minimal. Goal to be met by: 11/04/16 Progress towards Goal:: Met Goal #3: Low back pain at worst <5/10. Goal to be met by: 11/04/16 Progress towards Goal:: Met [facility] Goals Goal #1: Pt knows to continue HEP to maintain level of function at discharge. Goal to be met by: 11/30/16 Progress towards goal: Met Goal #2: Score on Oswestry LBP scale improved to 12. Goal to be met by: 11/30/16 Progress towards goal: Met Goal #3: Pt able to perform all home and work activities without back or LE pain. Goal to be met by: 11/30/16 Progress towards goal: Met Goal #4: Pt to demonstrates good comprehension of back safety and body mechanics. Goal to be met by: 11/30/16 Progress towards goal: Met Plan Reason for Discharge:: All Goals Met
== END 2016-12-03 ==
PROVIDERS: ATTEND Family Medicine
DX: M51.17 Intervertebral disc disorders with radiculopathy, lumbosacral region (principal)

== ENCOUNTER 2017-03-14 13:04 | Outpatient (CLI) | payer OTHER | END 2017-03-14 13:05 | disposition home or self-care (01) | LOC: LAB 13:04 | PROVIDERS: ATTEND Family Medicine | DX: E11.9 Type 2 diabetes mellitus without complications (principal) | CPT/HCPCS: 36415; 83036 ==

== ENCOUNTER 2017-03-21 12:45 | Outpatient (CLI) | payer OTHER ==
--- NOTE | 2017-03-21 13:26 | US ---
EXAM: Right lower extremity venous Doppler HISTORY: Concern for DVT with right lower extremity pain and tenderness. COMPARISON: None TECHNIQUE: Sonographic and Doppler evaluation of the right lower extremity vessels from the common femoral through the anterior tibial veins were obtained. Augmentation and compression techniques we re also performed. FINDINGS: There is spontaneous Doppler flow seen in the right lower extremity veins from the common femoral through the anterior tibial veins. There is normal compression and augmentation throughout the lower extremity veins. There is no visualized reflux. Sonographic appearance of the soft tiss ues are unremarkable. IMPRESSION: No right lower extremity thrombus
--- NOTE | 2017-03-21 15:56 | DI ---
EXAM: Radiographs, right knee HISTORY: Right leg pain. COMPARISON: None available. TECHNIQUE: Four views. FINDINGS: Bone mineralization is normal. There is no fracture or dislocation. Joint spaces are ma intained although mild tricompartmental marginal osteophyte formation noted. Mild patellar enthesop athy noted. No focal soft tissue abnormality is seen. IMPRESSION: Mild osteoarthritis.
== END 2017-03-21 12:46 | disposition home or self-care (01) ==
LOC: RAD 12:45
PROVIDERS: ATTEND Emergency Medicine
DX: M79.604 Pain in right leg (principal)

== ENCOUNTER 2017-03-27 06:59 | Outpatient (CLI) ==
--- NOTE | 2017-03-27 09:02 | MRI ---
EXAM: MRI right knee without contrast. HISTORY: Pain. 2 weeks ago lifting heavy object felt something pop in knee. Lateral knee pain. 1 week. No right knee surgery reported.. TECHNIQUE: Using a local extremity coil on a high field strength magnet multiplanar multisequence m agnet resonance imaging performed of the right knee without intravenous or intra-articular gadoliniu m contrast.. COMPARISON: Four view plain film examination right knee 03/21/2017. FINDINGS: Within the medial compartment there is abnormal size posterior horn medial meniscus along the root compatible with tear. There are intact root insertional fibers. Some minimal chondrosis over the weightbearing medial femoral condyle without underlying subchondral edema. Early productive osteophyte formation near Within the lateral compartment lateral meniscus is intact without discrete surfacing meniscal tear. The lateral compartment cartilage congruent without focal underlying subchondral edema. Early prod uctive osteophyte formation. Within the patellofemoral compartment the patella seated with intact patellar attachment of the medi al and lateral patellar retinaculum. The patellar and trochlear groove cartilage relatively congrue nt without focal underlying subchondral edema. Early productive osteophyte formation as well. Trace right knee effusion. No osteochondral loose bodies identified. Intact anterior and posterior cruciate ligament fibers of normal orientation. The extensor mechanism is intact. Some anterior s uperficial soft tissue edema/swelling. The medial collateral ligament as well as lateral collateral ligament complex and posterolateral corner intact. Bone marrow signal intensity overall shows no a cute fracture, stress fracture or bone erosions.. IMPRESSION: Tear posterior horn medial meniscus along the root. There are intact root insertional fibers. Early tricompartmental productive osteophyte formation. Minimal chondrosis medial compartment. Trace right knee effusion. Anterior superficial soft tissue edema/swelling. Intact cruciate and collateral ligaments.
== END 2017-03-27 07:00 | disposition home or self-care (01) ==
LOC: RAD 06:59
PROVIDERS: ATTEND Family Medicine
DX: M25.561 Pain in right knee (principal)

== ENCOUNTER 2017-06-24 08:35 | Outpatient (CLI) | payer OTHER ==
[2017-06-24 09:28] LABS: CHOL/HDL RATIO 3.4 (4.5-6.4)
== END 2017-06-24 08:36 | disposition home or self-care (01) ==
LOC: LAB 08:35
PROVIDERS: ATTEND Family Medicine
DX: Z00.00 Encounter for general adult medical examination without abnormal findings (principal)
CPT/HCPCS: 36415; 80061; 80328; 82947; 83036

== ENCOUNTER 2017-09-10 20:10 | Emergency (ER) ==
[2017-09-10 20:14] VITALS: BP 143/87; TEMP 98; BMI 47.2
[2017-09-10] MEDS ORDERED: DIFLUCAN PO STA (20:25)
--- NOTE | 2017-09-10 20:29 | ED.PDOC ---
General ED Provider: Dr. NETO LÓPEZ Chief Complaint: Urinary Problem Stated Complaint: Burning, frequency. for couple days. Time Seen by Physician: 20:26 Mode of Arrival: Walk-In Information Source: Patient Primary Care Provider: SHIVANI HERNANDEZ Nursing and Triage Documentation Reviewed and Agree: Yes Complaint Exam - Complaint/Exam Patient Complains of: Reports: Dysuria Symptoms Are: Still present Timing: Constant Initial Severity: Mild Current Severity: Mild Location of Pain: Reports: Penis Character: Reports: Burning Aggravating: Reports: None, Voiding Alleviating: Reports: None Associated Signs and Symptoms: Reports: Dysuria. Denies: Diaphoresis, Back pain , Fever, Hematuria, Constipation, Blood in stool, Rectal pain, Appetite change, Nausea, Vomiting, Penile swelling, Penile discharge, Decreased urine output, Increased urine frequency, Increased thirst, Decreased activity, Lethargy, Scrotal pain, Scrotal swelling, Abdominal Pain Testicular Torsion Risk Factors: Reports: None Surgical Obstruction Risk Factors: Reports: None Related Surgical History: Reports: None Abdominal Findings: Present: None Differential Diagnoses: Other (balanitis) Review of Systems - Review Of Systems Constitutional: Reports: No symptoms Eyes: Reports: No symptoms Ears, Nose, Mouth, Throat: Reports: No symptoms Respiratory: Reports: No symptoms Cardiac: Reports: No symptoms GI: Reports: No symptoms : Reports: Burning, Dysuria, Frequency Musculoskeletal: Reports: No symptoms Skin: Reports: No symptoms Neurological: Reports: No symptoms Endocrine: Reports: No symptoms Hematologic/Lymphatic: Reports: No symptoms All Other Systems: Reviewed and Negative Past Medical History - Past Medical History Previously Healthy: Yes Endocrine: Reports: DM 2 Cardiovascular: Reports: None Respiratory: Reports: None Hematological: Reports: None Gastrointestinal: Reports: Other Genitourinary: Reports: None Neuro/Psych: Reports: None Musculoskeletal: Reports: None Cancer: Reports: None - Surgical History General Surgical History: Reports: Unknown - Family History Family History: Reports: Unknown - Social History Smoking Status: Never smoker Hx Substance Use: No Alcohol Screening: None - Immunizations Tetanus Shot up to Date: Yes Physical Exam - Physical Exam Appearance: Well-appearing, No pain distress, Well-nourished Eyes: MOUSTAPHA, EOMI, Conjunctiva clear ENT: Ears normal, Nose normal, Oropharynx normal Respiratory: Airway patent, Breath sounds clear, Breath sounds equal, Respirations nonlabored Cardiovascular: RRR, Pulses normal, No rub, No murmur GI/: Soft, Nontender, No masses, Bowel sounds normal, No Organomegaly Musculoskeletal: Normal strength, ROM intact, No edema, No calf tenderness Skin: Warm, Dry, Normal color Neurological: Sensation intact, Motor intact, Reflexes intact, Cranial nerves intact, Alert, Oriented Psychiatric: Affect appropriate, Mood appropriate Critical Care Note - Critical Care Note Total Time (mins): 0 Course - Course Orders, Labs, Meds: Lab Review 09/10/17 20:29 Urine Color Yellow Urine Clarity Clear Urine pH 5.5 Ur Specific [place] 1.020 Urine Protein Negative Urine Glucose (UA) 2+ Urine Ketones Negative Urine Blood Negative Urine Nitrite Negative Urine Bilirubin Negative Urine Urobilinogen 0.2 Ur Leukocyte Esterase Negative Orders Category Date Time Status URINALYSIS C & S IF INDICATED Stat LAB 09/10/17 20:29 Completed Fluconazole [Diflucan] MEDS 09/10/17 20:25 Discontinued 150 mg PO ONCE STA Fluconazole [Diflucan] MEDS 09/10/17 20:30 Discontinued 200 mg .ROUTE .STK-MED ONE Medications Discontinued Medications Generic Name Dose Route Start Last Admin Trade Name Quangq PRN Reason Stop Dose Admin Fluconazole 150 mg 09/10/17 20:25 09/10/17 20:33 Diflucan PO 09/10/17 20:26 150 mg ONCE STA Administration Vital Signs: Temp Pulse Resp BP Pulse Ox 09/10/17 20:11 98 F 91 H 20 143/87 H 94 L Departure - Departure Time of Disposition: 20:39 Disposition: HOME SELF-CARE Discharge Problem: Balanitis Instructions: Balanitis (ED) Condition: Good Pt referred to PMD for follow-up: Yes Additional Instructions: Increase hydration Probiotics keep f/u with PMD Prescriptions: Fluconazole [Diflucan] 150 mg PO DAILY #5 tablet Allergies/Adverse Reactions: Allergies naproxen [From Naprosyn] Adverse Reaction (Verified 10/17/16 04:19) Hives/SWELLING Home Medications: Ambulatory Orders Lisinopril [Zestril] 10 mg PO DAILY 08/18/14 Metformin HCl 1,000 mg PO BID 08/18/14 Cetirizine HCl [Zyrtec] 10 mg PO 1 daily 05/22/16 Pantoprazole Sodium [Protonix] 40 mg PO QDAC 10/17/16 Atorvastatin Calcium [Lipitor] 10 mg PO DAILY 09/10/17 Dapagliflozin Propanediol [Farxiga] 10 mg PO DAILY 09/10/17 Fluconazole [Diflucan] 150 mg PO DAILY #5 tablet 09/10/17 Sildenafil Citrate [Viagra] 50 mg PO PRN PRN 09/10/17 Sitagliptin Phosphate [Januvia] 100 mg PO DAILY 09/10/17 Disposition Discussed With: Patient
[2017-09-10] MEDS ORDERED: DIFLUCAN ONE (20:30)
[2017-09-10 20:32] LABS: BILIRUBIN,URINE Negative (NEGATIVE); KETONES,URINE Negative (NEGATIVE); LEUKOCYTE ESTERASE ,URINE Negative (NEGATIVE); NITRITE,URINE Negative (NEGATIVE); PH,URINE 5.5 (5-9); PROTEIN,URINE Negative (NEGATIVE); URINE, BLOOD Negative (NEGATIVE)
[2017-09-10 20:45] LABS: ADD URINE MICROSCOPIC NO
== END 2017-09-10 20:50 | disposition home or self-care (01) ==
LOC: ED 20:10
DX: N48.1 Balanitis (principal)
CPT/HCPCS: 81001; 99283

== ENCOUNTER 2017-09-23 15:33 | Emergency (ER) ==
[2017-09-23 15:40] VITALS: BMI 46.9
--- NOTE | 2017-09-23 15:42 | ED.PDOC ---
General ED Provider: Dr. RESHMA BENNETT JR Chief Complaint: Dizziness Stated Complaint: worked midnights last pm--slept until 11:30 today and resumed normal activities--felt nauseated with diarrhea at 1330-became dizzy-and told didnt feel good--recent change in lantus--increase to 80 units--. [ End ] 101.6 100 20 94% 155/85 6/10 Time Seen by Physician: 15:43 Mode of Arrival: Walk-In Information Source: Patient Exam Limitations: No limitations Primary Care Provider: SHIVANI HERNANDEZ Nursing and Triage Documentation Reviewed and Agree: No Reviewed sepsis parameters & appropriate labs ordered?: Yes System Inflammatory Response Syndrome: Temp 101F or Greater Sepsis Protocol: For patient's 13 years and over: Temp is 96.8 and below OR 101 and greater Pulse >90 BPM Resp >20/minute Acutely Altered Mental Status Are patient's symptoms suggestive of a new infection, such as: -Pneumonia -Skin, Soft Tissue -Endocarditis -UTI -Bone, Joint Infection -Implantable Device -Acute Abdominal Infection -Wound Infection -Meningitis -Blood Stream Catheter Infection -Unknown System Inflammatory Response Syndrome: Not Applicable Review of Systems - Review Of Systems Constitutional: Reports: Chills, Fever, Malaise, Weakness, Loss of appetite Eyes: Reports: No symptoms Ears, Nose, Mouth, Throat: Reports: No symptoms Respiratory: Reports: No symptoms Cardiac: Reports: No symptoms GI: Reports: Diarrhea, Nausea : Reports: No symptoms Musculoskeletal: Reports: No symptoms Skin: Reports: No symptoms Neurological: Reports: Other (dizzy) Endocrine: Reports: No symptoms Hematologic/Lymphatic: Reports: No symptoms All Other Systems: Other Past Medical History - Past Medical History Previously Healthy: Yes Endocrine: Reports: DM 2 Cardiovascular: Reports: None, Hypertension Respiratory: Reports: None Hematological: Reports: None Gastrointestinal: Reports: Other Genitourinary: Reports: None Neuro/Psych: Reports: None Musculoskeletal: Reports: Arthritis, Other (DDD) Cancer: Reports: None Other Pertinent Past Medical History: SLEEP APNEA WITH C-PAP - Surgical History General Surgical History: Reports: Appendectomy, Cholecystectomy - Family History Family History: Reports: Unknown - Social History Smoking Status: Never smoker Hx Substance Use: No Alcohol Screening: None Physical Exam - Physical Exam Appearance: Ill-appearing, Obese Ill-appearing: Moderate Pain Distress: Moderate Eyes: MOUSTAPHA, EOMI, Conjunctiva clear ENT: Ears normal, Nose normal, Oropharynx normal Neck: Supple Respiratory: Airway patent, Breath sounds clear, Breath sounds equal, Respirations nonlabored Cardiovascular: RRR, Pulses normal, No rub, No murmur GI/: Soft, No Organomegaly, Tender, Bowel sounds hypoactive Musculoskeletal: Normal strength, ROM intact, No edema, No calf tenderness Skin: Warm, Dry, Normal color Neurological: Sensation intact, Motor intact, Reflexes intact, Cranial nerves intact, Alert, Oriented Psychiatric: Affect appropriate, Mood appropriate Critical Care Note - Critical Care Note Total Time (mins): 20 Course - Course Hematology/Chemistry: 09/23/17 16:02 09/23/17 16:02 Orders, Labs, Meds: Lab Review 09/23/17 09/23/17 09/23/17 15:50 16:02 16:02 WBC 14.64 H RBC 4.53 L Hgb 12.2 L Hct 37.0 L MCV 81.7 MCH 26.9 L MCHC 33.0 RDW Coeff of Aky 13.6 Plt Count 317 Immature Gran % (Auto) 0.5 Neut % (Auto) 78.4 Lymph % (Auto) 11.1 [place] % (Auto) 4.4 Eos % (Auto) 5.3 Baso % (Auto) 0.3 Immature Gran # (Auto) 0.1 Neut # 11.5 H Lymph # 1.6 [place] # 0.6 Eos # 0.8 H Baso # 0.1 Sodium 136 Potassium 4.0 Chloride 103 Carbon Dioxide 23 Anion Gap 14.0 BUN 15 Creatinine 1.21 H Estimated GFR (MDRD) 63.00 BUN/Creatinine Ratio 12.39 Glucose 278 H Lactic Acid Calcium 9.6 Total Bilirubin 0.4 AST 26 ALT 46 Alkaline Phosphatase 62 Total Protein 7.2 Albumin 3.7 Globulin 3.5 Albumin/Globulin Ratio 1.06 Amylase 66 Lipase 54 Procalcitonin Urine Color Urine Clarity Urine pH Ur Specific [place] Urine Protein Urine Glucose (UA) Urine Ketones Urine Blood Urine Nitrite Urine Bilirubin Urine Urobilinogen Ur Leukocyte Esterase H. pylori IgG Antibody Influenza A (Rapid) Negative Influenza B (Rapid) Negative 09/23/17 09/23/17 09/23/17 16:02 16:02 16:02 WBC RBC Hgb Hct MCV MCH MCHC RDW Coeff of Kay Plt Count Immature Gran % (Auto) Neut % (Auto) Lymph % (Auto) [place] % (Auto) Eos % (Auto) Baso % (Auto) Immature Gran # (Auto) Neut # Lymph # [place] # Eos # Baso # Sodium Potassium Chloride Carbon Dioxide Anion Gap BUN Creatinine Estimated GFR (MDRD) BUN/Creatinine Ratio Glucose Lactic Acid 21.6 H Calcium Total Bilirubin AST ALT Alkaline Phosphatase Total Protein Albumin Globulin Albumin/Globulin Ratio Amylase Lipase Procalcitonin < 0.05 Urine Color Urine Clarity Urine pH Ur Specific [place] Urine Protein Urine Glucose (UA) Urine Ketones Urine Blood Urine Nitrite Urine Bilirubin Urine Urobilinogen Ur Leukocyte Esterase H. pylori IgG Antibody Negative Influenza A (Rapid) Influenza B (Rapid) 09/23/17 17:33 WBC RBC Hgb Hct MCV MCH MCHC RDW Coeff of Kay Plt Count Immature Gran % (Auto) Neut % (Auto) Lymph % (Auto) [place] % (Auto) Eos % (Auto) Baso % (Auto) Immature Gran # (Auto) Neut # Lymph # [place] # Eos # Baso # Sodium Potassium Chloride Carbon Dioxide Anion Gap BUN Creatinine Estimated GFR (MDRD) BUN/Creatinine Ratio Glucose Lactic Acid Calcium Total Bilirubin AST ALT Alkaline Phosphatase Total Protein Albumin Globulin Albumin/Globulin Ratio Amylase Lipase Procalcitonin Urine Color Yellow Urine Clarity Clear Urine pH 6.0 Ur Specific [place] 1.015 Urine Protein Negative Urine Glucose (UA) 2+ Urine Ketones Negative Urine Blood Negative Urine Nitrite Negative Urine Bilirubin Negative Urine Urobilinogen 0.2 Ur Leukocyte Esterase Negative H. pylori IgG Antibody Influenza A (Rapid) Influenza B (Rapid) Orders Category Date Time Status IV ACCESS ONCE CARE 09/23/17 15:47 Active Access [ED IV/MEDIPORT/POWERPORT] .ONCE EMERGENCY 09/23/17 15:42 Active ED SHAMPOOER APPLIED .ONCE EMERGENCY 09/23/17 15:47 Active ED VITAL SIGNS Q1HR EMERGENCY 09/23/17 15:47 Active AMYLASE Stat LAB 09/23/17 16:02 Completed BLOOD CULTURE (ED ONLY) Stat LAB 09/23/17 16:02 Received CBC W/ AUTO DIFF Stat LAB 09/23/17 16:02 Completed COMPREHENSIVE METABOLIC PANEL Stat LAB 09/23/17 16:02 Completed FLU A & B RAPID TEST [RAPID FLU A/B] Stat LAB 09/23/17 15:50 Completed H. PYLORI SCREEN Stat LAB 09/23/17 16:02 Completed LACTIC ACID Stat LAB 09/23/17 16:02 Completed LIPASE Stat LAB 09/23/17 16:02 Completed MOLECULAR GROUP A STREP Stat LAB 09/23/17 15:50 Results PROCALCITONIN Stat LAB 09/23/17 16:02 Completed STREP SCREEN Stat LAB 09/23/17 15:50 Results URINALYSIS C & S IF INDICATED Stat LAB 09/23/17 17:33 Completed 0.9 % Sodium Chloride [Saline Flush] MEDS 09/23/17 15:42 Active 1 syr IVF PRN PRN Acetaminophen [Tylenol] MEDS 09/23/17 16:42 Discontinued 650 mg PO ONCE STA Ondansetron HCl/Pf [Zofran 4 mg/2 ml] MEDS 09/23/17 15:43 Discontinued 4 mg IVP ONCE STA Sodium Chloride 0.9% [Sodium Chloride] 1,000 ml MEDS 09/23/17 15:48 Discontinued IV BOLUS Sodium Chloride 0.9% [Sodium Chloride] 1,000 ml MEDS 09/23/17 17:28 Active IV BOLUS Medications Generic Name Dose Route Start Last Admin Trade Name Freq PRN Reason Stop Dose Admin Sodium Chloride 1,000 mls @ 1,000 mls/hr 09/23/17 17:28 09/23/17 17:29 Sodium Chloride IV 09/23/17 18:27 1,000 mls/hr BOLUS STA Administration Sodium Chloride 1 syr 09/23/17 15:42 09/23/17 16:14 Saline Flush IVF 1 syr PRN PRN Administration To flush IV Discontinued Medications Generic Name Dose Route Start Last Admin Trade Name Freq PRN Reason Stop Dose Admin Acetaminophen 650 mg 09/23/17 16:42 09/23/17 16:45 Tylenol PO 09/23/17 16:43 650 mg ONCE STA Administration Sodium Chloride 1,000 mls @ 1,000 mls/hr 09/23/17 15:48 09/23/17 16:14 Sodium Chloride IV 09/23/17 16:47 1,000 mls/hr BOLUS STA Administration Ondansetron HCl 4 mg 09/23/17 15:43 09/23/17 16:14 Zofran 4 Mg/2 Ml IVP 09/23/17 15:44 4 mg ONCE STA Administration Vital Signs: Temp Pulse Resp BP Pulse Ox 09/23/17 16:42 102.3 F H 92 H 125/66 09/23/17 15:34 101.6 F H 100 H 20 155/85 H 94 L Departure - Departure Time of Disposition: 17:54 Disposition: HOME SELF-CARE Discharge Problem: Nausea & vomiting Qualifiers: Vomiting type: unspecified Vomiting Intractability: non-intractable Qualified Code(s): R11.2 - Nausea with vomiting, unspecified Diarrhea Qualifiers: Diarrhea type: presumed infectious Qualified Code(s): A09 - Infectious gastroenteritis and colitis, unspecified Diabetes type 2, uncontrolled Qualifiers: Diabetes mellitus complication status: without complication Diabetes mellitus intermodal dispatcher insulin use: without retirement use Qualified Code(s): E11.65 - Type 2 diabetes mellitus with hyperglycemia Instructions: Type 2 Diabetes in Adults (ED), Acute Nausea and Vomiting (ED) Condition: Fair Pt referred to PMD for follow-up: Yes Additional Instructions: increase clear liquids 10-12 cups each day for three days call PMD in morning to arrange follow up return if worse if fever over 101.0 with Tylenol zofran for nausea may use phenergan for nausea if Zofran ineffective clear liquids for 24 hours Prescriptions: Ondansetron HCl [Zofran Tab] 4 mg PO QID PRN #12 tablet PRN Reason: Nausea / Vomiting Promethazine HCl [Phenergan Tab] 25 mg PO QID PRN #12 tablet PRN Reason: Nausea / Vomiting Allergies/Adverse Reactions: Allergies naproxen [From Naprosyn] Adverse Reaction (Verified 09/23/17 15:41) Hives/SWELLING Home Medications: Ambulatory Orders Lisinopril [Zestril] 10 mg PO DAILY 08/18/14 Metformin HCl 1,000 mg PO BID 08/18/14 Cetirizine HCl [Zyrtec] 10 mg PO 1 daily 05/22/16 Pantoprazole Sodium [Protonix] 40 mg PO QDAC 10/17/16 Atorvastatin Calcium [Lipitor] 10 mg PO DAILY 09/10/17 Sildenafil Citrate [Viagra] 50 mg PO PRN PRN 09/10/17 Insulin Glargine,Hum.rec.anlog [Lantus] 80 unit SQ DAILY 09/23/17 Ondansetron HCl [Zofran Tab] 4 mg PO QID PRN #12 tablet 09/23/17 Promethazine HCl [Phenergan Tab] 25 mg PO QID PRN #12 tablet 09/23/17
[2017-09-23] MEDS ORDERED: ZOFRAN 4 MG/2 ML IVP STA (15:43)
[2017-09-23] MEDS ORDERED: SODIUM CHLORIDE 1,000 ML IV STA ×2 (15:48→17:28)
[2017-09-23 16:11] LABS: BASOPHILS # (AUTO) 0.1 K/uL (0-0.2); BASOPHILS % (AUTO) 0.3 % (0.0-3.0); EOSINOPHILS # (AUTO) 0.8 K/ul (0.0-0.7); EOSINOPHILS % (AUTO) 5.3 % (0.0-7.0); HEMOGLOBIN 12.2 g/dl (14.0-18.0); IMMATURE GRANULOCYTE % (AUTO) 0.5 % (0.0-5.0); LYMPHOCYTES # (AUTO) 1.6 K/uL (0.60-3.4); LYMPHOCYTES % (AUTO) 11.1 (10.0-50.0); MEAN CORPUSCULAR HEMOGLOBIN 26.9 pg (27.0-31.0); MEAN CORPUSCULAR VOLUME 81.7 fl (80.0-94.0); MONOCYTES # (AUTO) 0.6 K/uL (0.4-2.0); MONOCYTES % (AUTO) 4.4 (0-10); NEUTROPHILS # (AUTO) 11.5 K/ul (2.0-6.9); NEUTROPHILS % (AUTO) 78.4; PLATELET COUNT 317 10^3/uL (140-440); RED BLOOD COUNT 4.53 10^6/ul (4.70-6.10); WHITE BLOOD COUNT 14.64 K/ul (4.2-10.2)
[2017-09-23 16:24] LABS: H. PYLORI ANTIBODY NEGATIVE (NEGATIVE); H.PYLORI INTERNAL QC INTERNAL QC VALID
[2017-09-23 16:25] LABS: ALBUMIN 3.7 g/dL (3.4-5.0); ALBUMIN/GLOBULIN RATIO 1.06; BILIRUBIN,TOTAL 0.4 mg/dL (0.00-1.20); BUN/CREATININE RATIO 12.39; CALCIUM 9.6 mg/dL (8.2-10.2); CREATININE 1.21 mg/dL (0.60-1.10); TOTAL PROTEIN 7.2 g/dL (6.4-8.2)
[2017-09-23 16:33] LABS: FLU INTERNAL QC INTERNAL QC VALID; RAPID FLU A NEGATIVE (NEGATIVE); RAPID FLU B NEGATIVE (NEGATIVE)
[2017-09-23 16:42] VITALS: BP 125/66
[2017-09-23] MEDS ORDERED: TYLENOL PO STA (16:42)
[2017-09-23] MEDS ORDERED: MORPHINE 2 MG/ML SYRINGE IVP STA (17:05)
[2017-09-23 17:37] LABS: ADD URINE MICROSCOPIC NO; BILIRUBIN,URINE Negative (NEGATIVE); KETONES,URINE Negative (NEGATIVE); LEUKOCYTE ESTERASE ,URINE Negative (NEGATIVE); NITRITE,URINE Negative (NEGATIVE); PROTEIN,URINE Negative (NEGATIVE); URINE, BLOOD Negative (NEGATIVE)
[2017-09-23 18:42] VITALS: TEMP 101.4
== END 2017-09-23 18:45 | disposition home or self-care (01) ==
LOC: ED 15:33
DX: A09 Infectious gastroenteritis and colitis, unspecified (principal); E11.65 Type 2 diabetes mellitus with hyperglycemia; Z79.899 Other long term (current) drug therapy
CPT/HCPCS: 36415; 80053; 81001; 82150; 83605; 83690; 84145; 85025; 86677; 87040; 87651; 87804; 87880; 96361; 96374; 99283

== ENCOUNTER 2017-12-16 06:31 | Outpatient (CLI) | END 2017-12-16 06:32 | disposition home or self-care (01) | LOC: LAB 06:31 | PROVIDERS: ATTEND Family Medicine | DX: E11.9 Type 2 diabetes mellitus without complications (principal); E66.9 Obesity, unspecified | CPT/HCPCS: 36415; 80053; 80061; 82043; 83036; 85025 ==

== ENCOUNTER 2017-12-17 09:00 | Outpatient (CLI) | END 2017-12-17 09:01 | disposition home or self-care (01) | LOC: LAB 09:00 | PROVIDERS: ATTEND Family Medicine | DX: D64.9 Anemia, unspecified (principal) | CPT/HCPCS: 36415; 82607; 82728; 83540 ==

== ENCOUNTER 2017-12-23 15:04 | Outpatient (CLI) | payer OTHER ==
--- NOTE | 2017-12-23 16:27 | DI ---
EXAM: Radiographs, skull HISTORY: Scalp lesion. COMPARISON: None available. TECHNIQUE: Four views. FINDINGS: Radiopaque marker was placed over the right occipital region in the area of concern. No o sseous abnormality of the skull identified. No soft tissue abnormalities seen. There is no calvaria l fracture. Paranasal sinuses and mastoid air cells are clear. IMPRESSION: No radiographic abnormality in the area of concern.
--- NOTE | 2017-12-23 16:47 | CT ---
EXAM: CT Head HISTORY: Scalp lesion COMPARISON: None TECHNIQUE: CT head performed without contrast FINDINGS: There is no mass effect, midline shift, or intracranial hemmorhage. Aranda white differenti ation is preserved. There is no extra-axial collection. The ventricles, sulci, and basal cisterns a re patent and symmetric. Mild cerebral volume loss. There is no depressed calvarial fracture. The mastoid air cells are clear. The visualized paranasal sinuses are clear. Several small nodular densit ies in the right occipital scalp region appear to have fatty cathy and may represent a small adjacent lymph nodes. Mild associated subcutaneous stranding. IMPRESSION: 1. No acute intracranial abnormality. 2. Mild cerebral volume loss. 3. Several small nodular densities in the right occipital scalp region appear to have fatty cathy and may represent a small adjacent lymph nodes. Mild associated subcutaneous stranding. Recommend clini tim correlation for cellulitis. Findings can be correlated with targeted ultrasound.
== END 2017-12-23 15:05 | disposition home or self-care (01) ==
LOC: RAD 15:04
PROVIDERS: ATTEND Family Medicine
DX: D64.9 Anemia, unspecified (principal); L98.9 Disorder of the skin and subcutaneous tissue, unspecified

== ENCOUNTER 2017-12-24 13:18 | Outpatient (CLI) ==
--- NOTE | 2017-12-24 13:59 | US ---
Exam: Ultrasound evaluation of the right side of the neck. HISTORY: Palpable abnormality for 1 week. Tenderness. Patient reports the palpable anomaly has dec reased in size. FINDINGS: Ultrasound evaluation of the palpable anomaly in the posterior right neck adjacent to the year demonstrates a 1.0 x 0.7 x 0.9 cm lymph node with a fatty hilum. No cystic masses are identifie d. IMPRESSION: Benign appearing lymph node measuring up to will 1.0 x 0.7 cm. Consider follow-up if sy mptoms persist or increase.
== END 2017-12-24 13:19 | disposition home or self-care (01) ==
LOC: RAD 13:18
PROVIDERS: ATTEND Family Medicine
DX: R22.0 Localized swelling, mass and lump, head (principal)

== ENCOUNTER 2018-01-03 08:45 | Outpatient (CLI) ==
[2018-01-03] MEDS ORDERED: VENOFER 300 MG in SODIUM CHLORIDE 250 ML IV ONE (08:56)
== END 2018-01-03 08:46 | disposition home or self-care (01) ==
LOC: OUTPT 08:45
PROVIDERS: ATTEND Family Medicine
DX: D50.9 Iron deficiency anemia, unspecified (principal)
CPT/HCPCS: 96365; 96366

== ENCOUNTER 2018-01-04 08:41 | Outpatient (CLI) ==
[2018-01-04] MEDS ORDERED: VENOFER 300 MG in SODIUM CHLORIDE 250 ML IV ONE (09:11)
== END 2018-01-04 08:42 | disposition home or self-care (01) ==
LOC: OUTPT 08:41
PROVIDERS: ATTEND Family Medicine
DX: D50.9 Iron deficiency anemia, unspecified (principal)
CPT/HCPCS: 96365; 96366

== ENCOUNTER 2018-01-05 08:39 | Outpatient (CLI) ==
[2018-01-05] MEDS ORDERED: VENOFER 300 MG in SODIUM CHLORIDE 250 ML IV ONE (08:49)
[2018-01-05 09:22] VITALS: BP 125/67; TEMP 98.6
== END 2018-01-05 08:40 | disposition home or self-care (01) ==
LOC: OPMED 08:39
PROVIDERS: ATTEND Family Medicine
DX: D50.9 Iron deficiency anemia, unspecified (principal)
CPT/HCPCS: 96365; 96366

== ENCOUNTER 2018-01-15 06:23 | Outpatient (CLI) | END 2018-01-15 06:24 | disposition home or self-care (01) | LOC: LAB 06:23 | PROVIDERS: ATTEND Family Medicine | DX: D64.9 Anemia, unspecified (principal) | CPT/HCPCS: 36415; 82728; 83540; 85007; 85008; 85025 ==

== ENCOUNTER 2018-01-29 08:24 | Outpatient (CLI) | payer OTHER ==
[2018-01-29] MEDS ORDERED: VITAMIN B-12 IM STA (08:34)
[2018-01-29 08:40] VITALS: BP 107/63; TEMP 97.5
== END 2018-01-29 08:25 | disposition home or self-care (01) ==
LOC: OPMED 08:24
PROVIDERS: ATTEND Internal Medicine Hematology & Oncology
DX: D64.9 Anemia, unspecified (principal)
CPT/HCPCS: 96372

== ENCOUNTER 2018-01-30 08:29 | Outpatient (CLI) | payer OTHER ==
[2018-01-30] MEDS ORDERED: VITAMIN B-12 IM STA (08:38)
[2018-01-30 08:42] VITALS: BP 114/68; TEMP 97.9
== END 2018-01-30 08:30 | disposition home or self-care (01) ==
LOC: OPMED 08:29
PROVIDERS: ATTEND Internal Medicine Hematology & Oncology
DX: D64.9 Anemia, unspecified (principal)
CPT/HCPCS: 96372

== ENCOUNTER 2018-01-31 08:06 | Outpatient (CLI) | payer OTHER ==
[2018-01-31] MEDS ORDERED: VITAMIN B-12 IM STA (08:15)
[2018-01-31] MEDS ORDERED: VITAMIN B-12 ONE (08:18)
== END 2018-01-31 08:07 | disposition home or self-care (01) ==
LOC: OPMED 08:06
PROVIDERS: ATTEND Internal Medicine Hematology & Oncology
DX: D64.9 Anemia, unspecified (principal)
CPT/HCPCS: 96372

== ENCOUNTER 2018-02-01 07:18 | Outpatient (CLI) | payer OTHER ==
[2018-02-01] MEDS ORDERED: VITAMIN B-12 IM STA (07:23)
== END 2018-02-01 07:19 | disposition home or self-care (01) ==
LOC: OPMED 07:18
PROVIDERS: ATTEND Internal Medicine Hematology & Oncology
DX: D64.9 Anemia, unspecified (principal)
CPT/HCPCS: 82272; 96372

== ENCOUNTER 2018-02-09 08:21 | Outpatient (CLI) ==
[2018-02-09 08:33] VITALS: BP 127/63; TEMP 96.3
[2018-02-09] MEDS ORDERED: VITAMIN B-12 IM STA (08:33)
== END 2018-02-09 08:43 | disposition home or self-care (01) ==
LOC: OPMED 08:21
PROVIDERS: ATTEND Internal Medicine Hematology & Oncology
DX: D64.9 Anemia, unspecified (principal)
CPT/HCPCS: 96372

== ENCOUNTER 2018-02-16 08:31 | Outpatient (CLI) ==
[2018-02-16] MEDS ORDERED: VITAMIN B-12 IM STA (08:42)
== END 2018-02-16 08:32 | disposition home or self-care (01) ==
LOC: OPMED 08:31
PROVIDERS: ATTEND Internal Medicine Hematology & Oncology
DX: D64.9 Anemia, unspecified (principal)
CPT/HCPCS: 96372

== ENCOUNTER 2018-02-25 08:48 | Outpatient (CLI) | payer OTHER | END 2018-02-25 08:49 | disposition home or self-care (01) | LOC: LAB 08:48 | PROVIDERS: ATTEND Internal Medicine Hematology & Oncology | DX: D64.9 Anemia, unspecified (principal) | CPT/HCPCS: 36415; 82728; 83540; 83550; 85008; 85025 ==

== ENCOUNTER 2018-03-02 07:17 | Outpatient (CLI) | payer OTHER ==
[2018-03-02 07:49] VITALS: BP 122/80; TEMP 98.1
[2018-03-02] MEDS ORDERED: VITAMIN B-12 IM STA (07:49)
== END 2018-03-02 07:18 | disposition home or self-care (01) ==
LOC: OPMED 07:17
PROVIDERS: ATTEND Internal Medicine Hematology & Oncology
DX: D64.9 Anemia, unspecified (principal); E11.9 Type 2 diabetes mellitus without complications; M19.90 Unspecified osteoarthritis, unspecified site
CPT/HCPCS: 36415; 80053; 80061; 83036; 85651; 86430; 96372

== ENCOUNTER 2018-03-25 06:32 | Outpatient (CLI) | payer OTHER | END 2018-03-25 06:33 | disposition home or self-care (01) | LOC: LAB 06:32 | PROVIDERS: ATTEND Internal Medicine Hematology & Oncology | DX: E61.1 Iron deficiency (principal) | CPT/HCPCS: 36415; 82728; 83540; 83550; 85027 ==

== ENCOUNTER 2018-04-21 06:42 | Outpatient (CLI) | END 2018-04-21 06:43 | disposition home or self-care (01) | LOC: LAB 06:42 | PROVIDERS: ATTEND Internal Medicine Hematology & Oncology | DX: E61.1 Iron deficiency (principal) | CPT/HCPCS: 36415; 82728; 83540; 83550; 85027 ==

== ENCOUNTER 2018-05-22 07:10 | Outpatient (CLI) | payer OTHER | END 2018-05-22 07:11 | disposition home or self-care (01) | LOC: LAB 07:10 | PROVIDERS: ATTEND Internal Medicine Hematology & Oncology | DX: E53.8 Deficiency of other specified B group vitamins (principal); D64.9 Anemia, unspecified | CPT/HCPCS: 36415; 80053; 82607; 82728; 83540; 83550; 85027 ==

== ENCOUNTER 2018-05-28 10:03 | Outpatient (CLI) ==
--- NOTE | 2018-05-28 10:59 | DI ---
EXAM: Three views of the right foot. History: Right foot pain. Findings: No acute fracture or dislocation. No abnormal calcifications or radiopaque foreign bodies . Mild narrowing of the first MTP joint with tiny osteophytes. Minimal calcaneal enthesiopathy. Impression: No acute osseous abnormality
--- NOTE | 2018-05-28 11:06 | DI ---
Exam: Left foot three-view History: Left foot pain Findings / impression: No acute bony or articular abnormalities. 6 mm spurring on the Achilles surf denise of the calcaneus. 6 mm spurring on the plantar surface of the calcaneus. No degenerative change s are seen.
== END 2018-05-28 10:04 | disposition home or self-care (01) ==
LOC: RAD 10:03
PROVIDERS: ATTEND Emergency Medicine
DX: M79.672 Pain in left foot (principal); M79.671 Pain in right foot

== ENCOUNTER 2018-06-20 13:25 | Outpatient (CLI) | END 2018-06-20 13:26 | disposition home or self-care (01) | LOC: LAB 13:25 | PROVIDERS: ATTEND Internal Medicine Hematology & Oncology | DX: E61.1 Iron deficiency (principal) | CPT/HCPCS: 36415; 82728; 83540; 83550; 85025 ==

== ENCOUNTER 2018-06-29 09:51 | Outpatient (CLI) ==
[2018-06-29 10:14] VITALS: BP 138/74; TEMP 96.3
[2018-06-29] MEDS ORDERED: INJECTAFER IV ONE (10:16)
[2018-06-29] MEDS ORDERED: SODIUM CHLORIDE IV ONE (10:16)
[2018-06-29] MEDS ORDERED: TYLENOL PO STA (10:22)
[2018-06-29] MEDS ORDERED: BENADRYL 25 MG in SODIUM CHLORIDE 100 ML IV STA (10:23)
== END 2018-06-29 09:52 | disposition home or self-care (01) ==
LOC: OPMED 09:51
PROVIDERS: ATTEND Internal Medicine Hematology & Oncology
DX: E61.1 Iron deficiency (principal); D64.9 Anemia, unspecified; K90.9 Intestinal malabsorption, unspecified; E53.8 Deficiency of other specified B group vitamins; K76.0 Fatty (change of) liver, not elsewhere classified; E11.9 Type 2 diabetes mellitus without complications; E78.5 Hyperlipidemia, unspecified; I10 Essential (primary) hypertension; K63.5 Polyp of colon; M19.90 Unspecified osteoarthritis, unspecified site
CPT/HCPCS: 96365; 96366

== ENCOUNTER 2018-07-17 12:33 | Outpatient (CLI) | payer OTHER | END 2018-07-17 12:34 | disposition home or self-care (01) | LOC: LAB 12:33 | PROVIDERS: ATTEND Internal Medicine Hematology & Oncology | DX: E61.1 Iron deficiency (principal) | CPT/HCPCS: 36415; 82728; 83540; 83550; 85025 ==

== ENCOUNTER 2018-08-15 07:18 | Outpatient (CLI) | payer OTHER | END 2018-08-15 07:19 | disposition home or self-care (01) | LOC: LAB 07:18 | PROVIDERS: ATTEND Family Medicine | DX: E11.9 Type 2 diabetes mellitus without complications (principal) | CPT/HCPCS: 36415; 80053; 85025 ==

== ENCOUNTER 2018-08-15 07:24 | Outpatient (CLI) | payer OTHER | END 2018-08-15 07:25 | disposition home or self-care (01) | LOC: LAB 07:24 | PROVIDERS: ATTEND Internal Medicine Hematology & Oncology | DX: E61.1 Iron deficiency (principal) | CPT/HCPCS: 36415; 80053; 82728; 83540; 83550; 85025 ==

== ENCOUNTER 2019-01-25 19:10 | Emergency (ER) ==
[2019-01-25 19:19] VITALS: BP 116/71; TEMP 97.8; BMI 45.0
--- NOTE | 2019-01-25 20:24 | ED.PDOC ---
General ED Provider: Dr. JIMENEZ HI Chief Complaint: Nausea/Vomiting Stated Complaint: gastroabdominal upset,no relevant or known cause.@ days, better now but. still going 3 4 x day.Paatient is otherwise normal sitting in chair and has good muscle toe,alert and well composed. Time Seen by Physician: 19:20 Mode of Arrival: Walk-In Information Source: Patient Exam Limitations: No limitations Primary Care Provider: SHIVANI HERNANDEZ Nursing and Triage Documentation Reviewed and Agree: Yes Does patient meet sepsis criteria?: No System Inflammatory Response Syndrome: Not Applicable Sepsis Protocol: For patient's 13 years and over: Temp is 96.8 and below OR 101 and greater Pulse >90 BPM Resp >20/minute Acutely Altered Mental Status Are patient's symptoms suggestive of a new infection, such as: -Pneumonia -Skin, Soft Tissue -Endocarditis -UTI -Bone, Joint Infection -Implantable Device -Acute Abdominal Infection -Wound Infection -Meningitis -Blood Stream Catheter Infection -Unknown GI Complaint Exam - Vomiting/Diarrhea Complaint/Exam Onset/Duration: 2 days Symptoms Are: Resolved Episodes of Diarrhea Over Last 24 Hours: 4 (loose BM) Initial Severity: Moderate Current Severity: Mild Character of Diarrhea: Reports: Watery Aggravating: Reports: Food Alleviating: Reports: Clear liquids, NPO, Lying still Associated Signs and Symptoms: Reports: Cramping Related History: Reports: Similar episode Non-GI Risk Factors: Reports: None Surgical Obstruction Risk Factors: Reports: None Related Surgical History: Reports: None Abdominal Findings: Present: None Rectal Exam: Present: Normal Findings Prostate Exam: Nontender Kussmaul Respirations Present: No Differential Diagnoses: Viral Gastroenteritis Review of Systems - Review Of Systems Constitutional: Reports: No symptoms Eyes: Reports: No symptoms Ears, Nose, Mouth, Throat: Reports: No symptoms Respiratory: Reports: No symptoms Cardiac: Reports: No symptoms GI: Reports: Diarrhea : Reports: No symptoms Musculoskeletal: Reports: Muscle pain Neurological: Reports: No symptoms Endocrine: Reports: No symptoms Hematologic/Lymphatic: Reports: No symptoms All Other Systems: Reviewed and Negative Past Medical History - Past Medical History Previously Healthy: Yes Endocrine: Reports: DM 2 Cardiovascular: Reports: None, Hypertension Respiratory: Reports: None Hematological: Reports: None Gastrointestinal: Reports: Other Genitourinary: Reports: None Neuro/Psych: Reports: None Musculoskeletal: Reports: Arthritis, Other (DDD) Cancer: Reports: None Other Pertinent Past Medical History: SLEEP APNEA WITH C-PAP - Surgical History General Surgical History: Reports: Appendectomy, Cholecystectomy - Family History Family History: Reports: Unknown - Social History Smoking Status: Never smoker Hx Substance Use: No Alcohol Screening: None Physical Exam - Physical Exam Appearance: Well-appearing Ill-appearing: Mild Pain Distress: None Eyes: MOUSTAPHA ENT: Ears normal Neck: Supple Respiratory: Airway patent, Breath sounds clear, Breath sounds equal Cardiovascular: RRR, Pulses normal, Bradycardia GI/: Soft, Nontender, No masses Musculoskeletal: Normal strength, ROM intact Skin: Warm, Dry, Normal color Neurological: Sensation intact Psychiatric: Affect appropriate Critical Care Note - Critical Care Note Total Time (mins): 0 Course - Course Hematology/Chemistry: 01/25/19 20:49 01/25/19 20:49 Orders, Labs, Meds: Lab Review 01/25/19 01/25/19 20:49 20:49 WBC 8.79 RBC 5.27 Hgb 15.5 Hct 45.9 MCV 87.1 MCH 29.4 MCHC 33.8 RDW Coeff of [place] 13.8 Plt Count 265 Immature Gran % (Auto) 0.8 Neut % (Auto) 65.0 Lymph % (Auto) 20.6 [place] % (Auto) 10.4 H Eos % (Auto) 3.0 Baso % (Auto) 0.2 Immature Gran # (Auto) 0.1 Neut # (Auto) 5.7 Lymph # (Auto) 1.8 [place] # (Auto) 0.9 Eos # (Auto) 0.3 Baso # (Auto) 0.0 Sodium 134.1 L Potassium 3.91 Chloride 102.0 Carbon Dioxide 21.5 L Anion Gap 14.51 BUN 29.8 H Creatinine 1.06 Estimated GFR (MDRD) 73.00 BUN/Creatinine Ratio 28.11 Glucose 113.7 H Calcium 8.55 Total Bilirubin 0.65 AST 25.9 ALT 37.3 Alkaline Phosphatase 48.5 Total Protein 6.68 Albumin 4.34 Globulin 2.34 Albumin/Globulin Ratio 1.85 Orders Category Date Time Status CBC W/ AUTO DIFF Stat LAB 01/25/19 20:49 Completed COMPREHENSIVE METABOLIC PANEL Stat LAB 01/25/19 20:49 Completed URINALYSIS WITH MICROSCOPIC Stat LAB 01/25/19 20:39 Uncollected Vital Signs: Temp Pulse Resp BP Pulse Ox 01/25/19 19:11 97.8 F 87 20 116/71 93 L Departure - Departure Time of Disposition: 21:24 Disposition: HOME SELF-CARE Discharge Problem: Viral syndrome Instructions: Dehydration (ED) Condition: Good Pt referred to PMD for follow-up: Yes IPMP verified?: No Allergies/Adverse Reactions: Allergies naproxen [From Naprosyn] Adverse Reaction (Verified 01/25/19 19:19) Hives/SWELLING Home Medications: Ambulatory Orders Lisinopril [Zestril] 10 mg PO DAILY 08/18/14 Metformin HCl 1,000 mg PO BID 08/18/14 Cetirizine HCl [Zyrtec] 10 mg PO 1 daily 05/22/16 Pantoprazole Sodium [Protonix] 40 mg PO QDAC 10/17/16 Atorvastatin Calcium [Lipitor] 10 mg PO DAILY 09/10/17 Empagliflozin/Linagliptin [Glyxambi 25 Mg-5 Mg Tablet] 1 each PO DAILY 05/28/18 Metformin HCl 500 mg PO DAILY 05/28/18 Tadalafil [Cialis] 5 mg PO DAILY 05/28/18 Insulin Glargine,Hum.rec.anlog [Sbeasaglyoandy Martinez U-100] 30 unit SQ DAILY Disposition Discussed With: Patient
== END 2019-01-25 21:37 | disposition home or self-care (01) ==
LOC: ED 19:10
DX: B34.9 Viral infection, unspecified (principal); R11.2 Nausea with vomiting, unspecified; R19.7 Diarrhea, unspecified; E86.0 Dehydration; E11.9 Type 2 diabetes mellitus without complications; I10 Essential (primary) hypertension; Z79.899 Other long term (current) drug therapy
CPT/HCPCS: 36415; 80053; 85025; 99283

== ENCOUNTER 2019-02-13 07:07 | Outpatient (CLI) | END 2019-02-13 07:08 | disposition home or self-care (01) | LOC: LAB 07:07 | PROVIDERS: ATTEND Family Medicine | DX: E11.9 Type 2 diabetes mellitus without complications (principal); Z12.5 Encounter for screening for malignant neoplasm of prostate; D50.8 Other iron deficiency anemias; E78.2 Mixed hyperlipidemia; D64.9 Anemia, unspecified | CPT/HCPCS: 36415; 80053; 80061; 82728; 83036; 83540; 83550 ==